=== PATIENT | female | born 1980 | race Caucasian/White ===

== ENCOUNTER 2020-06-13 08:01 | Inpatient (IN) | payer OTHER ==
[~2020-06-13] VITALS: Ht 175.3 cm; Wt 100.1 kg
[2020-06-13] MEDS ORDERED: SODIUM CITRATE/CITRIC ACID 30 ML UDC PO ONE (08:30)
[2020-06-13] MEDS ORDERED: CEFAZOLIN PMX 1GM/50ML IVPB ONE (08:30)
[2020-06-13] MEDS ORDERED: CEFAZOLIN PMX 1GM/50ML 50 ML IVPB ONE (09:00)
[2020-06-13] MEDS ORDERED: PLEASE ENTER HEIGHT AND WEIGHT MC SCH (09:00)
[2020-06-13 10:00] LABS: BASOPHILS # (AUTO) 0.02 x10^3/uL (0-0.1); BASOPHILS % (AUTO) 0 % (0-1); EOSINOPHILS # (AUTO) 0.08 x10^3/uL (0-0.4); EOSINOPHILS % (AUTO) 1 % (1-7); LYMPHOCYTES # (AUTO) 1.07 x10^3/uL (1-3.4); LYMPHOCYTES % (AUTO) 12 % (22-44); MD NO; MEAN CORPUSCULAR HEMOGLOBIN 30.3 pg (27.0-34.8); MEAN CORPUSCULAR HGB CONC 33.1 g/dL (32.4-35.8); MEAN CORPUSCULAR VOLUME 91.6 fL (80-100); MEAN PLATELET VOLUME 7.9 fL (7.4-10.4); MONOCYTES # (AUTO) 0.55 x10^3/uL (0.2-0.8); MONOCYTES % (AUTO) 6 % (2-9); NEUTROPHILS # (AUTO) 6.87 x10^3/uL (1.8-6.8); NEUTROPHILS % (AUTO) 80 % (42-75); PLATELET COUNT 240 x10^3/uL (130-400); RED CELL DISTRIBUTION WIDTH 16.2 % (9.6-15.2)
[2020-06-13] MEDS ORDERED: WATER-INJECTION,STERILE 10 ML IV ONE (10:17)
[2020-06-13] MEDS ORDERED: CEFAZOLIN 1,000 MG ONE (10:17)
[2020-06-13] MEDS ORDERED: ACETAMINOPHEN 325 MG TABLET PO PRN (11:00)
[2020-06-13] MEDS: LACTATED RINGERS 1,000 ML IV SCH ×2 (11:15→11:16)
[2020-06-13] MEDS ORDERED: ACETAMINOPHEN 325 MG TABLET ONE (13:04)
== END 2020-06-13 14:20 | disposition home or self-care (01) | DRG 819 ==
LOC: LDOP 08:01 → OBSVTOIN 08:05 → LDIP 08:05
PROVIDERS: ADMIT Obstetrics & Gynecology Maternal & Fetal Medicine; ATTEND Obstetrics & Gynecology Maternal & Fetal Medicine
PROC: 0UVC7ZZ Restriction of Cervix, Via Natural or Artificial Opening (ICD-10-PCS; principal; 2020-06-13)
DX: O26.872 Cervical shortening, second trimester (principal); O34.32 Maternal care for cervical incompetence, second trimester; O09.522 Supervision of elderly multigravida, second trimester; Z3A.19 19 weeks gestation of pregnancy; Z03.818 Encounter for observation for suspected exposure to other biological agents ruled out
CPT/HCPCS: 36415; 85025; 87635; G0378; J0690; J7120